=== PATIENT | female | born 2005 | race Asian ===

== ENCOUNTER → 2023-09-22 07:45 | Outpatient (REF) | payer BC, SELFPAY ==
[2023-09-22 09:01] LABS: % Basophils 0.4 % (0-2); % Eosinophils 3.9 % (0-6); % Immature Granulocytes 0.2 % (0-0.5); % Lymphocytes 30.4 % (20.5-51.1); % Monocytes 8.4 % (1.7-9.3); % Neutrophils 56.7 % (42.2-75.2); Absolute Eosinophils 0.2 10^3/uL (0-0.7); Absolute Lymphocytes 1.7 10^3/uL (1.2-3.4); Absolute Monocytes 0.5 10^3/uL (0.1-0.6); Absolute Neutrophils 3.2 10^3/uL (1.4-6.5); Hematocrit 40.9 % (37.0-47.0); Hemoglobin 13.8 g/dL (12.0-16.0); Mean Corp Hgb Conc. 33.7 g/dL (33.0-37.0); Mean Corpuscular Volume 91.9 fL (81.0-99.0); Mean Platelet Volume 9.3 fL (7.4-10.4); Nucleated Red Blood Cells % 0 %; Platelet Count 224 10^3/uL (130-400); Red Blood Cell Count 4.45 10^6/uL (4.20-5.40); Red Cell Dist. Width 12.9 % (11.5-14.5); White Blood Cell Count 5.7 10^3/uL (4.8-10.8)
[2023-09-22 10:30] LABS: ALT (SGPT) 20 U/L (0-35); AST (SGOT) 29 U/L (14-36); Albumin 4.3 g/dl (3.5-5.0); Alkaline Phosphatase 72 U/L (38-126); Blood Urea Nitrogen 9 mg/dl (7-17); Calcium 9.1 mg/dl (8.4-10.2); Carbon Dioxide 23 mmol/L (22-30); Chloride 106 mmol/L (98-107); Glucose 96 mg/dl (70-99); HDL Cholesterol 84 mg/dl; Iron 87 ug/dl (37-170); LDL Cholesterol, Calculated 70 mg/dl; Potassium 3.7 mmol/L (3.5-5.1); Sodium 136 mmol/L (135-145); Total Bilirubin 0.7 mg/dl (0.2-1.3); Total Cholesterol 169 mg/dl (50-199); Total Protein 6.8 g/dl (6.3-8.2); Triglyceride 76 mg/dl (10-149); Very Low Density Lipoprotein 15 mg/dl (0-30); eGFR > 60.00
[2023-09-22 10:32] LABS: Free T3 4.54 pg/ml (2.77-5.27); Free T4 1.15 ng/dl (0.78-2.19); Vitamin D, 25-OH*** 27.8 ng/mL (30-80)
[2023-09-22 10:39] LABS: Percent Saturation 23 % (20-50); Total Iron Binding Capacity 366 ug/dl (265-497)
[2023-09-22 10:45] LABS: TSH 1.47 uIU/ml (0.47-4.68)
[2023-09-22 10:49] LABS: Ferritin 36.5 ng/ml (6.24-137)
[2023-09-22 12:41] LABS: Total Thyroxine 9.22 ug/dl (5.5-11.0)
[2023-09-23 06:01] LABS: Thyroglobulin Antibodies <0.9 IU/mL (0.0-4.0); Thyroid Peroxidase Ab (TPO) 0.6 IU/mL (0.0-9.0)
[2023-09-23 18:09] LABS: Zinc 67.6 ug/dL (60.0-120.0)
== END ==
LOC: REG 07:45
PROVIDERS: ATTENDING PHYSICIAN Nurse Practitioner
DX: L65.9 Nonscarring hair loss, unspecified (principal); R63.4 Abnormal weight loss; R53.82 Chronic fatigue, unspecified; E78.5 Hyperlipidemia, unspecified; Z00.00 Encounter for general adult medical examination without abnormal findings
CPT/HCPCS: 36415; 80053; 80061; 82306; 82728; 83540; 83550; 84436; 84439; 84443; 84481; 84630; 85025; 86376; 86800

== ENCOUNTER → 2024-04-09 07:24 | Outpatient (REF) | payer BC, SELFPAY | LOC: RCS 07:24 | PROVIDERS: ATTENDING PHYSICIAN Internal Medicine Cardiovascular Disease; FAMILY PHYSICIAN Internal Medicine | DX: R55 Syncope and collapse (principal) | CPT/HCPCS: 93306 ==

== ENCOUNTER → 2024-10-31 16:51 | Outpatient (REF) | payer BC, SELFPAY ==
[2024-10-31 18:12] LABS: Monotest Negative (Negative)
== END ==
LOC: REG 16:51
PROVIDERS: ATTENDING PHYSICIAN Hospitalist
DX: J02.9 Acute pharyngitis, unspecified (principal)
CPT/HCPCS: 36415; 86308

== ENCOUNTER 2024-11-14 00:33 | Emergency (ER) | payer SELFPAY ==
[2024-11-14 00:34] VITALS: BP 117/68
[2024-11-14 01:06] VITALS: BMI 21.8
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
[2024-11-14] MEDS: MOTRIN 600 MG PO (01:26)
[2024-11-14] MEDS: ADACEL 0.5 ML IM (01:27)
[2024-11-14 03:04] VITALS: BP 111/58
== END 2024-11-14 03:11 | disposition home or self-care (01) ==
LOC: EMR 00:33
PROVIDERS: EMERGENCY PHYSICIAN Student in an Organized Health Care Education/Training Program; FAMILY PHYSICIAN Internal Medicine
DX: R07.81 Pleurodynia (principal); R07.89 Other chest pain; S81.812A Laceration without foreign body, left lower leg, initial encounter; S20.212A Contusion of left front wall of thorax, initial encounter; M54.2 Cervicalgia; S60.551A Superficial foreign body of right hand, initial encounter; V47.1XXA Car passenger injured in collision with fixed or stationary object in nontraffic accident, initial encounter; Y92.488 Other paved roadways as the place of occurrence of the external cause; Z23 Encounter for immunization
CPT/HCPCS: 12031; 99283; 90471; 71111; 90715

== ENCOUNTER 2025-05-04 09:23 | Emergency (ER) | payer BC, SELFPAY ==
[2025-05-04 09:27] VITALS: BP 110/62
--- NOTE | 2025-05-04 10:25 | ED.GENMED ---
Addendum entered and electronically signed by AKBAR Shah 05/07/25 14:08:
urine cx + staph saprophyticus macrobid sensitive.will send to her pharmacy
Original Note:
History of Present Illness
General
Chief Complaint: Abdominal Symptoms
Source: patient and family
Time Seen by Provider: 05/04/25 10:08
History of Present Illness
History of Present Illness:
This patient is a 19-year-old female who was feeling her usual self when she went to bed last night. She awoke at 3 AM with complaints of 'sharp' left sided abdominal pain associated with a bloated feeling, nausea, and repeated dry heaving. After
having dry heaves she would momentarily feel chills and sweats. She denies actual fever. She did take a shower before arrival here and does feel better, is no longer having dry heaves or nausea, but still has left-sided discomfort. She denies
pelvic pain, vaginal bleeding or discharge, urinary symptoms. Her last bowel movement was yesterday morning. The pain is persistent without specific provoking or relieving factors, no radiation, no back pain.
Past History
Past History
ED Past Medical History: None
ED Past Surgical History: None
Social History
Tobacco: Vaping
Alcohol: None
Drug: Marijuana
Personal: Single
Living: with family
Phy Exam
Physical Exam
Physical Exam:
GENERAL: Alert , in no apparent distress
EYE: pupils equal and reactive
NECK: Supple, no significant adenopathy.
ENT: o/p clr, mmm.
CARDIAC: Regular rate and rhythm .
LUNGS: Clear breath sounds bilaterally, no acute respiratory distress, no wheezes/rales/rhonchi
ABDOMEN: Soft, mild left lower quadrant tenderness, no r/g, no cvat
NEUROLOGICAL: Alert and oriented, no focal neuro deficits
SKIN: Warm and dry, skin intact.
MUSCULOSKELETAL: No edema, well perfused.
PSYCH: Normal and appropriate interaction.
Course
Orders/Labs/Results
Orders:
Orders
05/04/25 10:24
CT Abd/Pel (IV only)-DH only Urgent
Comment:
Reason For Exam: llq pain
Cardiac Monitoring- Treatment ONCE
0.9% Sodium Chloride 1000 ml [Nss] 1,000 ml IV BOLUS
Test Result ONCE
05/04/25 10:29
Complete Blood Count/No Diff Urgent
Comprehensive Metabolic Panel Urgent
HCG, Serum Qualitative Screen Urgent
Urinalysis Reflex To Culture Urgent
Date Specimen was Collected: 05/04/25
Time Specimen was Collected: 10:26
Urine Microscopic Reflex Cult Urgent
Urine Culture Urgent
CHUCK Source: U
Specimen Description:
Date Specimen was Collected: 05/04/25
Time Specimen was Collected: 10:26
Abnormal Lab Results
05/04/25
10:29
WBC 11.5 H 10^3/uL
(4.8-10.8)
Creatinine 0.5 L mg/dL
(0.6-1.0)
Glucose 101 H mg/dl
(70-99)
Ur Occult Blood Reflex 3+ A
(Negative)
Leukocyte Esterase Rfl 1+ A
(Negative)
Urine RBC 16-20 A /HPF
(0-2)
Urine WBC (Reflex) 26-30 A /HPF
(0-5)
Urine Bacteria (Reflex) Few A
(Negative)
Urine Albumin (Reflex) 2+ A
(Neg - Trace)
05/04/25 10:29
05/04/25 10:29
Vital Signs
Initial and Last Documented VS:
Initial Vital Signs
Temp Pulse Resp BP Pulse Ox
97.6 F 68 18 110/62 98
05/04/25 09:27 05/04/25 09:27 05/04/25 09:27 05/04/25 09:27 05/04/25 09:27
Last Documented Vital Signs
Temp Pulse Resp BP Pulse Ox
98.6 F 76 20 113/73 97
05/04/25 10:35 05/04/25 10:35 05/04/25 10:35 05/04/25 11:00 05/04/25 11:01
*Pulse Oximetry
SaO2: 98
Oxygen Mode of Delivery: Room air
Patient hypoxic: no
*Critical Care Note
Total Time (30-74mins, 75-104mins- exclusive of procedures): Not Applicable
Update Note
Update Note:
Patient presents to the Emergency Department with ____abdominal pain nausea dry heaves
Number and Complexity of Problems Addressed at the Encounter
� Chronic conditions affecting care:
� Acute Exacerbation and/or Progression of Chronic Illness:
� Differential Diagnosis includes: But not limited to gastroenteritis, colitis, diverticulitis, atypical appendicitis, kidney stone, pyelonephritis, etc. etc.
Amount and/or Complexity of Data to be Reviewed and Analyzed
� I performed an independent evaluation of and my interpretation is:
EKG:
CT:No acute pathology of the abdomen or pelvis identified. Evaluation limited without oral contrast.
Mild hepatomegaly
Simple right ovarian cyst.
Xrays:
Laboratory Studies: Very mild leukocytosis
Other:
� Review of other/old records reveals:
� Clinical information was obtained by an independent historian: Parents who are at bedside
� Prescriptions/Medications Considered but not given:
� Further testing considered but not performed:
Risk of Complications and/or Morbidity or Mortality of Patient Management
� Social determinants of health affecting care:
� Discussion with other providers (PCP, Hospitalists, Consultants, etc):
� Escalation of care including admission/observation vs risk of discharge considered: At this time clinical suspicion for acute pelvic event such as ovarian torsion is very low given patient denies pelvic pain and has specific
abdominal tenderness to palpation.
1:59 PM patient resting comfortably and actually was able to take a nap here, feels well, no complaints at this time. Did discuss with patient her findings including urine which appears contaminated. Given that she does not have any UTI-like
symptoms, will defer reevaluation for her follow-up. Discussed with her importance of follow-up and reasons return to ER she was made aware of the small right ovarian cyst as well.
ED Attending Note
-
Portions of this chart may have been created with voice recognition software.� Occasional wrong word or��sound alike� substitutions may have occurred due to the inherent limitations of voice recognition software.
Discharge Plan
Departure
Patient Disposition: Home (Routine Discharge)
Date of Disposition: 05/04/25
Time of Disposition: 13:59
Patient with high blood pressure during this ER visit?: No
Condition: Good
Discharge Problem:
Abdominal pain
Instructions: Ovarian cyst - ED (DC), Abdominal Pain
Prescriptions:
No Action
No Current Medications
0
Referrals:
Mo Paredes MD [Family Provider, Internal Medicine] - Follow up in 2-3 days
Activity Restrictions/Additional Instructions:
IF YOU DEVELOP RECURRENT/NEW/PERSISTENT PAIN, NAUSEA, VOMITING, FEVER, PAIN WITH URINATION, OR OTHER WORRISOME SIGNS, GO TO THE ER IMMEDIATELY!
Interventions
Interventions:
*Risk Screen - Suicide Last Done: 05/04/25 09:27
*General Assessment Last Done: 05/04/25 09:27
*Neglect/Abuse Screening Last Done: 05/04/25 10:35
*ED- Fall Risk Assessment Last Done: 05/04/25 10:35
*ED COVID-19 Vaccine History Last Done: 05/04/25 10:35
*ED Influenza Vaccine History Last Done: 05/04/25 10:35
UQ-Mfrrei-Qryshxsphu Assessment Last Done: 05/04/25 10:35
Discharge Date and Time
Print Language: WELSH
[2025-05-04 10:34] VITALS: BMI 24.7
[2025-05-04 10:35] VITALS: BP 107/86
[2025-05-04] MEDS: NSS 1000 IV (10:35)
[2025-05-04 10:50] LABS: Hematocrit 39.8 % (37.0-47.0); Hemoglobin 13.4 g/dL (12.0-16.0); Mean Corp Hgb Conc. 33.7 g/dL (33.0-37.0); Mean Corpuscular Volume 89.2 fL (81.0-99.0); Platelet Count 218 10^3/uL (130-400); Red Cell Dist. Width 12.1 % (11.5-14.5)
[2025-05-04 11:00] VITALS: BP 113/73
[2025-05-04 11:13] LABS: ALT (SGPT) 16 U/L (0-35); AST (SGOT) 20 U/L (14-36); Albumin 4.6 g/dl (3.5-5.0); Alkaline Phosphatase 66 U/L (38-126); Blood Urea Nitrogen 15 mg/dl (7-17); Calcium 9.3 mg/dl (8.4-10.2); Carbon Dioxide 26 mmol/L (22-30); Chloride 105 mmol/L (98-107); Estimated Creatinine Clearance 117 ml/min; Glucose 101 mg/dl (70-99); HCG, Serum Qualitative Screen Negative; Potassium 4.3 mmol/L (3.5-5.1); Sodium 135 mmol/L (135-145); Total Protein 7.3 g/dl (6.3-8.2); eGFR > 60.00
[2025-05-04 12:12] LABS: Urine Character Slightly Cloudy (Clear)
[2025-05-04 12:21] LABS: Urine Red Blood Cell 16-20 /HPF (0-2); Urine White Cell 26-30 /HPF (0-5)
== END 2025-05-04 14:22 | disposition home or self-care (01) ==
LOC: EMR 09:23
PROVIDERS: EMERGENCY PHYSICIAN Emergency Medicine; FAMILY PHYSICIAN Internal Medicine
DX: R10.32 Left lower quadrant pain (principal); N83.291 Other ovarian cyst, right side; R16.0 Hepatomegaly, not elsewhere classified; F17.290 Nicotine dependence, other tobacco product, uncomplicated
CPT/HCPCS: 99284; 96360; 74177; 80053; 81003; 81015; 84703; 85027; 87086; 87147; Q9967